=== PATIENT | female | born 1955 | race Caucasian/White ===

== ENCOUNTER 2016-10-05 12:18 | Inpatient (IN) | payer MEDICARE, MEDICAID ==
[~2016-10-05] VITALS: Ht 162.6 cm; Wt 95.0 kg
[~2016-10-05 12:18] MED LIST: ALAVERT10 MG OR; ALBUTEROL0.5 % IN; AMLODIPINE BESYL5 MG PO; ASPIRIN LOW DOS81 M2 PO; ASPIRIN325 MG OR; ATENOLOL50 MG PO; ATORVASTATIN CA40 MG PO; BACTRIM DS1 TAB PO; BENAZEPRIL10 M1 PO; BENAZEPRIL10 MG PO; BIAXIN500 MG OR; BUMEX OR; BUPROPION150 MG PO; CHANTIX1 MG PO; CILOSTAZOL100 MG PO; CIPRO500 MG OR; COMBIVENT IN; COUMADIN2.5 MG PO; CYANOCOBALAM1000 MCG IJ; CYCLOBENZAPR10 MG PO; DEXILANT60 MG PO; FLEXERIL PO; FOLIC ACID1 MG PO; FUROSEMIDE40 MG PO; GABAPENTIN300 MG OR; GABAPENTIN300 MG PO; GEMFIBROZIL600 MG OR; GLIPIZIDE ER5 MG OR; GLUCOVANCE5 MG/500 M OR; HUMULI1; HUMULI1 SC; HUMULIN 70/30 SC; HYDROXYCHLOROQ200 MG PO; IMDUR30 MG OR; IMURAN50 MG PO; IPRATROPIUM0.03 %; ISOSORB MONO30 MG OR; KEFLEX500 M1 PO; LANOXIN0.25 MG PO; LASIX20 MG PO; LEVEMIR SC; LOPID600 MG OR; LOPID600 MG PO; LORTAB 1010 MG PO; LORTAB 5; LORTAB 5 OR; LOTENSIN5 MG OR; LOVENOX 6060 MG/0.6 SC; MAG-OXIDE400 MG PO; METFORMIN1000 MG OR; MULTIVITAMIN OR; NEURONTIN600 MG PO; NITROGLYCER0.4 MG SL; NITROSTAT0.4 MG SL; NOVOLOG100 IU/1 M SC; PLAVIX75 MG PO; PRADAXA150 MG PO; SERTRALINE25 MG OR; SERTRALINE50 MG OR; SERTRALINE50 MG PO; SIMVASTATIN40 MG PO; SORINE80 MG PO; TENORMIN100 MG PO; ZANTAC 150 PO; ZANTAC150 M1 OR; [UNRECOGNIZED DRUG - MIXTURE] OR
[2016-10-05] MEDS ORDERED: HYDROXYCHLOR200 MG PO (13:03)
[2016-10-05] MEDS ORDERED: LORTAB 10-325 M1 TAB PO (13:04)
[2016-10-05] MEDS ORDERED: IMODIUM2 MG PO (13:06)
[2016-10-05] MEDS ORDERED: ARICEPT5 MG PO (13:07)
[2016-10-05] MEDS ORDERED: LEXAPRO10 MG PO (13:19)
[2016-10-05 13:27] LABS: HEMATOCRIT 28.2 % (37.0-47.0); HEMOGLOBIN 8.3 g/dl (12.0-16.0); IMMATURE GRANULOCYTES 0.4 % (0.0-1.0); MEAN CELL VOLUME 89.8 fL CALC (80.0-100.0); MEAN CORPUSCULAR HGB 26.4 pG CALC (26.0-32.0); MEAN CORPUSCULAR HGB CONC 29.4 g/L CALC (32.0-36.0); NEUT# 6.17 thou/uL (2.00-7.15); RED BLOOD COUNT 3.14 mill/uL (4.20-5.60); RED CELL DISTRI WIDTH 18.9 % (11.5-15.5)
[2016-10-05 13:42] LABS: ALBUMIN 3.4 g/dL (3.2-5.0); ALKALINE PHOSPHATASE 112 u/l (38-126); ANION GAP 13 (6-22 (CALC)); BILIRUBIN, TOTAL 0.8 mg/dL (0.0-1.4); BUN 24 mg/dL (8-23); BUN/CREATININE RATIO 25 (12-20 (CALC)); CALCIUM 8.6 mg/dL (8.4-10.2); CARBON DIOXIDE 29 mmol/l (22-30); CHLORIDE 104 mmol/l (95-108); GFR 56 ML/MIN (>=60 (CALC)); GFR FOR AFR.AMER. > 60 ML/MIN (>=60 (CALC)); GLUCOSE 134 mg/dL (82-115); SGOT/AST 15 u/l (9-36); SGPT/ALT 24 u/l (11-66); SODIUM 141 mmol/l (137-146)
[2016-10-05 13:47] LABS: INTERNATIONAL NORMALIZED RATIO 3.3 RATIO (0.7-1.3); PROTHROMBIN TIME 38.8 SECONDS (9.0-12.5)
[2016-10-05 13:49] LABS: POTASSIUM 5.2 mmol/l (3.5-5.1)
[2016-10-05 13:53] LABS: MYOGLOBIN 57 ng/mL (0 - 62)
[2016-10-05] MEDS ORDERED: HYDROXYCHLOR200 M1 PO (14:33)
[2016-10-05] MEDS ORDERED: HUMULIN 70/30 K1 INJ SC (14:34)
[2016-10-05] MEDS ORDERED: LEVEMIR100 UNIT/M SC (14:35)
[2016-10-05] MEDS ORDERED: DIGOXIN125 MCG PO (14:35)
[2016-10-05 16:58] VITALS: BP 155/66
== END 2016-10-05 16:37 | disposition left against medical advice (07) | DRG 293 ==
LOC: ED 12:18 → ED-I 15:30 → ED 15:47 → MS2 15:48
PROVIDERS: Emergency Medicine; ADMIT Internal Medicine; ATTEND Internal Medicine
DX: I11.0 Hypertensive heart disease with heart failure (principal); Z99.81 Dependence on supplemental oxygen; I50.9 Heart failure, unspecified; J44.9 Chronic obstructive pulmonary disease, unspecified; E11.9 Type 2 diabetes mellitus without complications; I48.91 Unspecified atrial fibrillation; M19.90 Unspecified osteoarthritis, unspecified site; F17.210 Nicotine dependence, cigarettes, uncomplicated; Z95.5 Presence of coronary angioplasty implant and graft; Z79.4 Long term (current) use of insulin

== ENCOUNTER 2016-10-06 20:08 | Inpatient (IN) | payer MEDICARE, MEDICAID ==
[~2016-10-06] VITALS: Ht 162.6 cm; Wt 94.0 kg
[~2016-10-06 20:08] MED LIST changes: +ARICEPT5 MG PO; +DIGOXIN125 MCG PO; +HUMULIN 70/30 K1 INJ SC; +HYDROXYCHLOR200 M1 PO; +HYDROXYCHLOR200 MG PO; +IMODIUM2 MG PO; +LEVEMIR100 UNIT/M SC; +LEXAPRO10 MG PO; +LORTAB 10-325 M1 TAB PO
[2016-10-06 20:46] LABS: HEMOGLOBIN 8.7 g/dl (12.0-16.0); IMMATURE GRANULOCYTES 0.3 % (0.0-1.0); MEAN CELL VOLUME 89.3 fL CALC (80.0-100.0); MEAN CORPUSCULAR HGB 25.9 pG CALC (26.0-32.0); NEUT# 6.4 thou/uL (2.00-7.15); RED BLOOD COUNT 3.36 mill/uL (4.20-5.60); RED CELL DISTRI WIDTH 18.7 % (11.5-15.5)
[2016-10-06 21:00] LABS: INTERNATIONAL NORMALIZED RATIO 2.3 RATIO (0.7-1.3); PROTHROMBIN TIME 26.8 SECONDS (9.0-12.5)
[2016-10-06 21:01] LABS: ALBUMIN 3.7 g/dL (3.2-5.0); ALKALINE PHOSPHATASE 111 u/l (38-126); ANION GAP 15 (6-22 (CALC)); BILIRUBIN, TOTAL 1.1 mg/dL (0.0-1.4); BUN 21 mg/dL (8-23); BUN/CREATININE RATIO 24 (12-20 (CALC)); CARBON DIOXIDE 30 mmol/l (22-30); CHLORIDE 101 mmol/l (95-108); CREATININE 0.9 mg/dL (0.5-1.0); GFR > 60 ML/MIN (>=60 (CALC)); GFR FOR AFR.AMER. > 60 ML/MIN (>=60 (CALC)); GLUCOSE 137 mg/dL (82-115); POTASSIUM 4.6 mmol/l (3.5-5.1); SGOT/AST 17 u/l (9-36); SGPT/ALT 21 u/l (11-66); SODIUM 141 mmol/l (137-146); TOTAL PROTEIN 7.4 g/dL (6.3-8.2)
[2016-10-06 21:09] LABS: MYOGLOBIN 57 ng/mL (0 - 62)
[2016-10-06 22:20] VITALS: BP 137/70
[2016-10-06 22:46] LABS: URINE BILIRUBIN - DIPSTICK NEGATIVE (NEGATIVE); URINE BLOOD DIPSTICK NEGATIVE (NEGATIVE); URINE CLARITY CLEAR; URINE COLOR YELLOW; URINE GLUCOSE - DIPSTICK NEGATIVE (NEGATIVE); URINE KETONE NEGATIVE (NEGATIVE); URINE LEUK ESTERASE NEGATIVE (NEGATIVE); URINE NITRITE - DIPSTICK NEGATIVE (Negative); URINE PH 5.5 (4.5-8.0); URINE PROTEIN - DIPSTICK NEGATIVE (NEG-TRACE); URINE UROBILINOGEN - DIPSTICK 0.2 E.U./dL (0.2)
[2016-10-07 04:40] VITALS: BP 125/62
[2016-10-07 05:46] LABS: INTERNATIONAL NORMALIZED RATIO 2.3 RATIO (0.7-1.3); PROTHROMBIN TIME 26.1 SECONDS (9.0-12.5)
[2016-10-07 05:50] LABS: ANION GAP 12 (6-22 (CALC)); BUN 19 mg/dL (8-23); BUN/CREATININE RATIO 23 (12-20 (CALC)); CALCIUM 8.8 mg/dL (8.4-10.2); CARBON DIOXIDE 33 mmol/l (22-30); CHLORIDE 99 mmol/l (95-108); CREATININE 0.8 mg/dL (0.5-1.0); GFR > 60 ML/MIN (>=60 (CALC)); GFR FOR AFR.AMER. > 60 ML/MIN (>=60 (CALC)); GLUCOSE 89 mg/dL (82-115); MAGNESIUM 1.5 mg/dL (1.6-2.3); POTASSIUM 3.9 mmol/l (3.5-5.1); SODIUM 141 mmol/l (137-146)
[2016-10-07 08:27] VITALS: BP 128/70
[2016-10-07 11:18] VITALS: BP 114/69
[2016-10-07 15:55] VITALS: BP 122/57
[2016-10-07 19:11] VITALS: BP 123/62
[2016-10-07 23:52] VITALS: BP 157/64
[2016-10-08 04:40] VITALS: BP 153/53
[2016-10-08 05:29] LABS: INTERNATIONAL NORMALIZED RATIO 1.7 RATIO (0.7-1.3); PROTHROMBIN TIME 19.4 SECONDS (9.0-12.5)
[2016-10-08 05:33] LABS: ANION GAP 14 (6-22 (CALC)); BUN 19 mg/dL (8-23); BUN/CREATININE RATIO 26 (12-20 (CALC)); CALCIUM 8.7 mg/dL (8.4-10.2); CARBON DIOXIDE 30 mmol/l (22-30); CHLORIDE 100 mmol/l (95-108); CREATININE 0.7 mg/dL (0.5-1.0); GFR > 60 ML/MIN (>=60 (CALC)); GFR FOR AFR.AMER. > 60 ML/MIN (>=60 (CALC)); GLUCOSE 139 mg/dL (82-115); POTASSIUM 4.7 mmol/l (3.5-5.1); SODIUM 139 mmol/l (137-146)
[2016-10-08 07:40] VITALS: BP 164/84
[2016-10-08] MEDS ORDERED: LISINOPRIL2.5 MG PO (10:47)
[2016-10-08] MEDS ORDERED: PREDNISONE10 MG PO (10:47)
[2016-10-08] MEDS ORDERED: DOXYCYCL HYC100 MG PO (10:47)
[2016-10-08] MEDS ORDERED: PEPCID20 MG PO (10:47)
[2016-10-08] MEDS ORDERED: LASIX 20 MG TAB20 MG PO (10:52)
[2016-10-08] MEDS ORDERED: NEBULIZER COMPRESSOR NEB (11:09)
[2016-10-08] MEDS ORDERED: IPRATROPIU0.5 MG/3 M IN (11:09)
== END 2016-10-08 11:25 | DRG 291 ==
LOC: ENPENDDIS → ED 20:08 → ED-I 21:23 → ED 21:23 → ED-I 21:26 → ED 21:47 → MS2 21:48
PROVIDERS: Emergency Medicine; ADMIT Internal Medicine; ATTEND Internal Medicine
DX: I11.0 Hypertensive heart disease with heart failure (principal); J18.9 Pneumonia, unspecified organism; J96.21 Acute and chronic respiratory failure with hypoxia; E11.40 Type 2 diabetes mellitus with diabetic neuropathy, unspecified; Z99.81 Dependence on supplemental oxygen; I48.0 Paroxysmal atrial fibrillation; J44.1 Chronic obstructive pulmonary disease with (acute) exacerbation; J44.0 Chronic obstructive pulmonary disease with (acute) lower respiratory infection; I50.31 Acute diastolic (congestive) heart failure; I25.10 Atherosclerotic heart disease of native coronary artery without angina pectoris; E11.9 Type 2 diabetes mellitus without complications; E78.5 Hyperlipidemia, unspecified; K21.9 Gastro-esophageal reflux disease without esophagitis; M15.9 Polyosteoarthritis, unspecified; F32.9 Major depressive disorder, single episode, unspecified; G47.33 Obstructive sleep apnea (adult) (pediatric); F17.210 Nicotine dependence, cigarettes, uncomplicated; Z79.4 Long term (current) use of insulin; Z95.5 Presence of coronary angioplasty implant and graft; Z79.01 Long term (current) use of anticoagulants

== ENCOUNTER 2017-01-28 10:27 | Emergency (ER) | payer MEDICARE, MEDICAID ==
[~2017-01-28] VITALS: Ht 162.6 cm; Wt 89.0 kg
[~2017-01-28 10:27] MED LIST changes: +DOXYCYCL HYC100 MG PO; +IPRATROPIU0.5 MG/3 M IN; +LANTUS SOL100 UNIT/M SC; +LASIX 20 MG TAB20 MG PO; -LEVEMIR100 UNIT/M SC; +LISINOPRIL2.5 MG PO; +NEBULIZER COMPRESSOR NEB; +PEPCID20 MG PO; +PREDNISONE10 MG PO
[2017-01-28] MEDS ORDERED: GABAPENTIN100 MG PO (10:56)
[2017-01-28] MEDS ORDERED: ZOFRAN ODT4 MG PO (10:58)
[2017-01-28] MEDS ORDERED: ATORVASTATIN CA40 MG PO (11:01)
[2017-01-28] MEDS ORDERED: CHANTIX1 MG PO (11:02)
[2017-01-28] MEDS ORDERED: ACCOLATE10 MG PO (11:03)
[2017-01-28] MEDS ORDERED: HYDROXYCHLOR200 M1 PO (11:03)
[2017-01-28] MEDS ORDERED: AMLODIPINE5 MG PO (11:12)
[2017-01-28 11:13] LABS: HEMATOCRIT 34.6 % (37.0-47.0); HEMOGLOBIN 10.8 g/dl (12.0-16.0); IMMATURE GRANULOCYTES 0.4 % (0.0-1.0); MEAN CELL VOLUME 86.9 fL CALC (80.0-100.0); MEAN CORPUSCULAR HGB 27.1 pG CALC (26.0-32.0); MEAN CORPUSCULAR HGB CONC 31.2 g/L CALC (32.0-36.0); NEUT# 5.96 thou/uL (2.00-7.15); RED BLOOD COUNT 3.98 mill/uL (4.20-5.60); RED CELL DISTRI WIDTH 16.2 % (11.5-15.5)
[2017-01-28 11:15] LABS: ALKALINE PHOSPHATASE 110 u/l (38-126); ANION GAP 17 (6-22 (CALC)); BILIRUBIN, TOTAL 1.2 mg/dL (0.0-1.4); BUN 12 mg/dL (8-23); BUN/CREATININE RATIO 16 (12-20 (CALC)); CARBON DIOXIDE 29 mmol/l (22-30); CHLORIDE 102 mmol/l (95-108); CREATININE 0.8 mg/dL (0.5-1.0); GFR > 60 ML/MIN (>=60 (CALC)); GFR FOR AFR.AMER. > 60 ML/MIN (>=60 (CALC)); GLUCOSE 114 mg/dL (82-115); SGOT/AST 21 u/l (9-36); SGPT/ALT 22 u/l (11-66); SODIUM 143 mmol/l (137-146); TOTAL PROTEIN 7.5 g/dL (6.3-8.2)
[2017-01-28 11:27] LABS: MYOGLOBIN 56 ng/mL (0 - 62)
[2017-01-28] MEDS ORDERED: PHENERGAN25 MG/TAB PO (15:22)
[2017-01-28 15:37] VITALS: BP 117/85
[2017-01-29] MEDS ORDERED: BACTRIM DS1 TAB PO (18:13)
== END 2017-01-28 15:47 | disposition home or self-care (01) ==
LOC: ED 10:27
PROVIDERS: Emergency Medicine
DX: R11.0 Nausea (principal); R53.1 Weakness; R19.7 Diarrhea, unspecified; I10 Essential (primary) hypertension; E11.9 Type 2 diabetes mellitus without complications; Z79.4 Long term (current) use of insulin; I48.91 Unspecified atrial fibrillation; Z79.01 Long term (current) use of anticoagulants; J90 Pleural effusion, not elsewhere classified

== ENCOUNTER 2017-01-29 15:14 | Emergency (ER) | payer MEDICARE, MEDICAID ==
[~2017-01-29] VITALS: Ht 162.6 cm; Wt 86.0 kg
[~2017-01-29 15:14] MED LIST changes: +ACCOLATE10 MG PO; +AMLODIPINE5 MG PO; +GABAPENTIN100 MG PO; +PHENERGAN25 MG/TAB PO; +ZOFRAN ODT4 MG PO
[2017-01-29 16:09] LABS: HEMATOCRIT 31.5 % (37.0-47.0); HEMOGLOBIN 9.6 g/dl (12.0-16.0); IMMATURE GRANULOCYTES 0.5 % (0.0-1.0); MEAN CELL VOLUME 88.5 fL CALC (80.0-100.0); MEAN CORPUSCULAR HGB CONC 30.5 g/L CALC (32.0-36.0); NEUT# 4.67 thou/uL (2.00-7.15); RED BLOOD COUNT 3.56 mill/uL (4.20-5.60); RED CELL DISTRI WIDTH 16.4 % (11.5-15.5)
[2017-01-29 16:44] LABS: ALBUMIN 3.5 g/dL (3.2-5.0); ALKALINE PHOSPHATASE 97 u/l (38-126); ANION GAP 14 (6-22 (CALC)); BUN 14 mg/dL (8-23); BUN/CREATININE RATIO 17 (12-20 (CALC)); CALCIUM 8.8 mg/dL (8.4-10.2); CARBON DIOXIDE 30 mmol/l (22-30); CHLORIDE 103 mmol/l (95-108); CREATININE 0.8 mg/dL (0.5-1.0); GFR > 60 ML/MIN (>=60 (CALC)); GFR FOR AFR.AMER. > 60 ML/MIN (>=60 (CALC)); GLUCOSE 179 mg/dL (82-115); MAGNESIUM 1.3 mg/dL (1.6-2.3); POTASSIUM 3.8 mmol/l (3.5-5.1); SGOT/AST 17 u/l (9-36); SGPT/ALT 25 u/l (11-66); SODIUM 143 mmol/l (137-146); TOTAL PROTEIN 6.7 g/dL (6.3-8.2)
[2017-01-29 16:56] LABS: MYOGLOBIN 52 ng/mL (0 - 62)
[2017-01-29 18:03] LABS: URINE BILIRUBIN - DIPSTICK NEGATIVE (NEGATIVE); URINE BLOOD DIPSTICK SMALL (NEGATIVE); URINE CLARITY SLIGHT CLOUDY; URINE COLOR YELLOW; URINE GLUCOSE - DIPSTICK NEGATIVE (NEGATIVE); URINE KETONE NEGATIVE (NEGATIVE); URINE LEUK ESTERASE TRACE (NEGATIVE); URINE NITRITE - DIPSTICK NEGATIVE (Negative); URINE PH 5.5 (4.5-8.0); URINE PROTEIN - DIPSTICK NEGATIVE (NEG-TRACE); URINE SPECIFIC GRAVITY >=1.030; URINE UROBILINOGEN - DIPSTICK 0.2 E.U./dL (0.2)
[2017-01-29 18:09] LABS: URINE BACTERIA MANY hpf; URINE SQUAMOUS EPITHELIAL CELL FEW EPI/hpf (0-FEW)
[2017-01-29] MEDS ORDERED: BACTRIM DS1 TAB PO (18:13)
[2017-01-29 21:28] VITALS: BP 112/54
== END 2017-01-29 21:29 | disposition home or self-care (01) ==
LOC: ED 15:14
PROVIDERS: Emergency Medicine
DX: N39.0 Urinary tract infection, site not specified (principal); E83.42 Hypomagnesemia; B96.89 Other specified bacterial agents as the cause of diseases classified elsewhere; R53.1 Weakness; R11.0 Nausea; I10 Essential (primary) hypertension; I48.91 Unspecified atrial fibrillation; E11.9 Type 2 diabetes mellitus without complications; Z79.4 Long term (current) use of insulin
CPT/HCPCS: J3475

== ENCOUNTER 2017-02-01 07:47 | Inpatient (IN) | payer MEDICARE, MEDICAID ==
[~2017-02-01] VITALS: Ht 162.6 cm; Wt 90.0 kg
[2017-02-01 08:26] LABS: HEMATOCRIT 30.6 % (37.0-47.0); HEMOGLOBIN 9.7 g/dl (12.0-16.0); IMMATURE GRANULOCYTES 0.4 % (0.0-1.0); MEAN CELL VOLUME 86.7 fL CALC (80.0-100.0); MEAN CORPUSCULAR HGB 27.5 pG CALC (26.0-32.0); MEAN CORPUSCULAR HGB CONC 31.7 g/L CALC (32.0-36.0); NEUT# 4.19 thou/uL (2.00-7.15); RED BLOOD COUNT 3.53 mill/uL (4.20-5.60); RED CELL DISTRI WIDTH 17.3 % (11.5-15.5)
[2017-02-01 08:36] LABS: ALBUMIN 3.6 g/dL (3.2-5.0); ALKALINE PHOSPHATASE 106 u/l (38-126); ANION GAP 16 (6-22 (CALC)); BILIRUBIN, TOTAL 1.1 mg/dL (0.0-1.4); BUN 12 mg/dL (8-23); BUN/CREATININE RATIO 16 (12-20 (CALC)); CARBON DIOXIDE 28 mmol/l (22-30); CHLORIDE 100 mmol/l (95-108); CREATININE 0.8 mg/dL (0.5-1.0); GFR > 60 ML/MIN (>=60 (CALC)); GFR FOR AFR.AMER. > 60 ML/MIN (>=60 (CALC)); GLUCOSE 131 mg/dL (82-115); MAGNESIUM 1.3 mg/dL (1.6-2.3); POTASSIUM 3.7 mmol/l (3.5-5.1); SGOT/AST 15 u/l (9-36); SGPT/ALT 24 u/l (11-66); SODIUM 141 mmol/l (137-146)
[2017-02-01 08:47] LABS: MYOGLOBIN 42 ng/mL (0 - 62)
[2017-02-01 08:51] LABS: INTERNATIONAL NORMALIZED RATIO 7.6 RATIO (0.7-1.3); PROTHROMBIN TIME 96.3 SECONDS (9.0-12.5)
[2017-02-01 08:55] LABS: URINE BILIRUBIN - DIPSTICK NEGATIVE (NEGATIVE); URINE BLOOD DIPSTICK TRACE-INTACT (NEGATIVE); URINE CLARITY CLEAR; URINE COLOR YELLOW; URINE GLUCOSE - DIPSTICK NEGATIVE (NEGATIVE); URINE KETONE NEGATIVE (NEGATIVE); URINE LEUK ESTERASE NEGATIVE (NEGATIVE); URINE NITRITE - DIPSTICK NEGATIVE (Negative); URINE PROTEIN - DIPSTICK NEGATIVE (NEG-TRACE); URINE UROBILINOGEN - DIPSTICK 0.2 E.U./dL (0.2)
[2017-02-01 12:00] VITALS: BP 117/66
[2017-02-01 15:19] VITALS: BP 122/59
[2017-02-01 19:15] VITALS: BP 105/56
[2017-02-02 00:45] VITALS: BP 145/76
[2017-02-02 05:00] VITALS: BP 167/79
[2017-02-02 06:10] LABS: HEMATOCRIT 32.3 % (37.0-47.0); HEMOGLOBIN 10.2 g/dl (12.0-16.0); MEAN CELL VOLUME 87.3 fL CALC (80.0-100.0); MEAN CORPUSCULAR HGB 27.6 pG CALC (26.0-32.0); MEAN CORPUSCULAR HGB CONC 31.6 g/L CALC (32.0-36.0); RED BLOOD COUNT 3.7 mill/uL (4.20-5.60); RED CELL DISTRI WIDTH 17.4 % (11.5-15.5)
[2017-02-02 06:21] LABS: INTERNATIONAL NORMALIZED RATIO 3.5 RATIO (0.7-1.3); PROTHROMBIN TIME 41.5 SECONDS (9.0-12.5)
[2017-02-02 06:25] LABS: ANION GAP 17 (6-22 (CALC)); BUN 14 mg/dL (8-23); BUN/CREATININE RATIO 19 (12-20 (CALC)); CALCIUM 9.2 mg/dL (8.4-10.2); CARBON DIOXIDE 31 mmol/l (22-30); CHLORIDE 98 mmol/l (95-108); CREATININE 0.8 mg/dL (0.5-1.0); GFR > 60 ML/MIN (>=60 (CALC)); GFR FOR AFR.AMER. > 60 ML/MIN (>=60 (CALC)); GLUCOSE 208 mg/dL (82-115); MAGNESIUM 1.7 mg/dL (1.6-2.3); POTASSIUM 5.1 mmol/l (3.5-5.1); SODIUM 141 mmol/l (137-146)
[2017-02-02 07:21] VITALS: BP 172/75
[2017-02-02 12:00] VITALS: BP 148/76
[2017-02-02] MEDS ORDERED: PREDNISONE10 MG PO (14:30)
== END 2017-02-02 15:06 | disposition home or self-care (01) | DRG 309 ==
LOC: ED 07:47 → ED-I 10:12 → ED 11:09 → MS2 11:10
PROVIDERS: Emergency Medicine; ADMIT Internal Medicine; ATTEND Internal Medicine
DX: I48.0 Paroxysmal atrial fibrillation (principal); J96.10 Chronic respiratory failure, unspecified whether with hypoxia or hypercapnia; E11.40 Type 2 diabetes mellitus with diabetic neuropathy, unspecified; Z99.81 Dependence on supplemental oxygen; N39.0 Urinary tract infection, site not specified; I10 Essential (primary) hypertension; J44.9 Chronic obstructive pulmonary disease, unspecified; I25.10 Atherosclerotic heart disease of native coronary artery without angina pectoris; K21.9 Gastro-esophageal reflux disease without esophagitis; M15.9 Polyosteoarthritis, unspecified; F32.9 Major depressive disorder, single episode, unspecified; G47.33 Obstructive sleep apnea (adult) (pediatric); F17.210 Nicotine dependence, cigarettes, uncomplicated; E83.42 Hypomagnesemia; B96.89 Other specified bacterial agents as the cause of diseases classified elsewhere; R79.1 Abnormal coagulation profile; T45.515A Adverse effect of anticoagulants, initial encounter; D64.9 Anemia, unspecified; Z95.5 Presence of coronary angioplasty implant and graft
CPT/HCPCS: J3475

== ENCOUNTER 2017-03-13 15:16 | Inpatient (IN) | payer MEDICARE, MEDICAID ==
[~2017-03-13] VITALS: Ht 162.6 cm; Wt 89.4 kg
[2017-03-13 15:56] LABS: HEMATOCRIT 31.3 % (37.0-47.0); HEMOGLOBIN 9.6 g/dl (12.0-16.0); IMMATURE GRANULOCYTES 0.6 % (0.0-1.0); MEAN CELL VOLUME 91.3 fL CALC (80.0-100.0); MEAN CORPUSCULAR HGB CONC 30.7 g/L CALC (32.0-36.0); NEUT# 4.02 thou/uL (2.00-7.15); RED BLOOD COUNT 3.43 mill/uL (4.20-5.60); RED CELL DISTRI WIDTH 17.4 % (11.5-15.5)
[2017-03-13 16:05] LABS: INTERNATIONAL NORMALIZED RATIO 2.3 RATIO (0.7-1.3)
[2017-03-13 16:07] LABS: ALBUMIN 3.5 g/dL (3.2-5.0); ALKALINE PHOSPHATASE 102 u/l (38-126); ANION GAP 15 (6-22 (CALC)); BILIRUBIN, TOTAL 1.1 mg/dL (0.0-1.4); BUN 22 mg/dL (8-23); BUN/CREATININE RATIO 22 (12-20 (CALC)); CALCIUM 8.6 mg/dL (8.4-10.2); CARBON DIOXIDE 29 mmol/l (22-30); CHLORIDE 103 mmol/l (95-108); GFR 56 ML/MIN (>=60 (CALC)); GFR FOR AFR.AMER. > 60 ML/MIN (>=60 (CALC)); GLUCOSE 132 mg/dL (82-115); POTASSIUM 3.7 mmol/l (3.5-5.1); SGOT/AST 11 u/l (9-36); SGPT/ALT 24 u/l (11-66); SODIUM 142 mmol/l (137-146); TOTAL PROTEIN 6.4 g/dL (6.3-8.2)
[2017-03-13 16:19] LABS: MYOGLOBIN 74 ng/mL (0 - 62)
[2017-03-13] MEDS ORDERED: MAGNESIUM250 M1 PO (16:20)
[2017-03-13] MEDS ORDERED: ZOFRAN4 MG/TAB PO (16:23)
[2017-03-13] MEDS ORDERED: CHANTIX1 MG PO (16:27)
[2017-03-13] MEDS ORDERED: AMIODARONE200 MG PO (16:31)
[2017-03-13] MEDS ORDERED: COUMADIN5 MG PO (16:32)
[2017-03-13 18:05] VITALS: BP 139/49
[2017-03-13 23:53] VITALS: BP 122/68
[2017-03-14 05:26] VITALS: BP 103/56
[2017-03-14 08:00] VITALS: BP 143/74
[2017-03-14 08:02] LABS: ANION GAP 16 (6-22 (CALC)); BUN 28 mg/dL (8-23); BUN/CREATININE RATIO 27 (12-20 (CALC)); CALCIUM 8.8 mg/dL (8.4-10.2); CARBON DIOXIDE 27 mmol/l (22-30); CHLORIDE 102 mmol/l (95-108); GFR 56 ML/MIN (>=60 (CALC)); GFR FOR AFR.AMER. > 60 ML/MIN (>=60 (CALC)); GLUCOSE 229 mg/dL (82-115); POTASSIUM 4.3 mmol/l (3.5-5.1); SODIUM 141 mmol/l (137-146)
[2017-03-14 08:04] LABS: INTERNATIONAL NORMALIZED RATIO 2.4 RATIO (0.7-1.3); PROTHROMBIN TIME 28.3 SECONDS (9.0-12.5)
[2017-03-14 11:00] VITALS: BP 104/55
[2017-03-14 15:53] VITALS: BP 131/57
[2017-03-14 19:00] VITALS: BP 114/59
[2017-03-15 01:01] VITALS: BP 135/58
[2017-03-15 04:54] VITALS: BP 129/74
[2017-03-15 06:21] LABS: HEMATOCRIT 29.2 % (37.0-47.0); MEAN CELL VOLUME 91.3 fL CALC (80.0-100.0); MEAN CORPUSCULAR HGB 28.1 pG CALC (26.0-32.0); MEAN CORPUSCULAR HGB CONC 30.8 g/L CALC (32.0-36.0); RED BLOOD COUNT 3.2 mill/uL (4.20-5.60); RED CELL DISTRI WIDTH 17.1 % (11.5-15.5)
[2017-03-15 06:52] LABS: PROTHROMBIN TIME 35.6 SECONDS (9.0-12.5)
[2017-03-15 06:56] LABS: ANION GAP 14 (6-22 (CALC)); BUN 33 mg/dL (8-23); BUN/CREATININE RATIO 32 (12-20 (CALC)); CARBON DIOXIDE 32 mmol/l (22-30); CHLORIDE 104 mmol/l (95-108); GFR 56 ML/MIN (>=60 (CALC)); GFR FOR AFR.AMER. > 60 ML/MIN (>=60 (CALC)); GLUCOSE 137 mg/dL (82-115); MAGNESIUM 1.6 mg/dL (1.6-2.3); POTASSIUM 4.1 mmol/l (3.5-5.1); SODIUM 146 mmol/l (137-146)
[2017-03-15 08:10] VITALS: BP 109/74
[2017-03-15 11:00] VITALS: BP 156/59
[2017-03-15 15:30] VITALS: BP 117/52
[2017-03-15 19:15] VITALS: BP 140/70
[2017-03-16] VITALS (7 sets, daily range): BP systolic 93–168; BP diastolic 54–82
[2017-03-16 06:30] LABS: HEMATOCRIT 29.3 % (37.0-47.0); HEMOGLOBIN 8.9 g/dl (12.0-16.0); IMMATURE GRANULOCYTES 0.8 % (0.0-1.0); MEAN CELL VOLUME 91.3 fL CALC (80.0-100.0); MEAN CORPUSCULAR HGB 27.7 pG CALC (26.0-32.0); MEAN CORPUSCULAR HGB CONC 30.4 g/L CALC (32.0-36.0); NEUT# 3.48 thou/uL (2.00-7.15); RED BLOOD COUNT 3.21 mill/uL (4.20-5.60); RED CELL DISTRI WIDTH 17.5 % (11.5-15.5)
[2017-03-16 06:43] LABS: INTERNATIONAL NORMALIZED RATIO 2.3 RATIO (0.7-1.3); PROTHROMBIN TIME 26.1 SECONDS (9.0-12.5)
[2017-03-16 06:49] LABS: ANION GAP 13 (6-22 (CALC)); BUN 29 mg/dL (8-23); BUN/CREATININE RATIO 34 (12-20 (CALC)); CALCIUM 8.9 mg/dL (8.4-10.2); CARBON DIOXIDE 33 mmol/l (22-30); CHLORIDE 104 mmol/l (95-108); CREATININE 0.8 mg/dL (0.5-1.0); GFR > 60 ML/MIN (>=60 (CALC)); GFR FOR AFR.AMER. > 60 ML/MIN (>=60 (CALC)); GLUCOSE 97 mg/dL (82-115); MAGNESIUM 1.5 mg/dL (1.6-2.3); POTASSIUM 3.8 mmol/l (3.5-5.1); SODIUM 146 mmol/l (137-146)
[2017-03-17 04:25] VITALS: BP 140/62
[2017-03-17 07:02] LABS: ANION GAP 13 (6-22 (CALC)); BUN 31 mg/dL (8-23); BUN/CREATININE RATIO 31 (12-20 (CALC)); CALCIUM 9.2 mg/dL (8.4-10.2); CARBON DIOXIDE 37 mmol/l (22-30); CHLORIDE 101 mmol/l (95-108); GFR 56 ML/MIN (>=60 (CALC)); GFR FOR AFR.AMER. > 60 ML/MIN (>=60 (CALC)); GLUCOSE 76 mg/dL (82-115); POTASSIUM 4.3 mmol/l (3.5-5.1); SODIUM 145 mmol/l (137-146)
[2017-03-17 07:16] LABS: INTERNATIONAL NORMALIZED RATIO 1.5 RATIO (0.7-1.3)
[2017-03-17 07:56] VITALS: BP 129/59
[2017-03-17 08:44] VITALS: BP 129/59
[2017-03-17] MEDS ORDERED: AMIODARONE200 MG PO (12:04)
== END 2017-03-17 13:20 | disposition home or self-care (01) | DRG 291 ==
LOC: ED 15:16 → ED-I 16:19 → ED 16:36 → MS2 16:37
PROVIDERS: Emergency Medicine; Internal Medicine; Nurse Practitioner Family; ADMIT Internal Medicine; ATTEND Internal Medicine
PROC: 5A09357 Assistance with Respiratory Ventilation, Less than 24 Consecutive Hours, Continuous Positive Airway Pressure (ICD-10-PCS; principal; 2017-03-15)
DX: I11.0 Hypertensive heart disease with heart failure (principal); J96.21 Acute and chronic respiratory failure with hypoxia; E11.40 Type 2 diabetes mellitus with diabetic neuropathy, unspecified; J44.1 Chronic obstructive pulmonary disease with (acute) exacerbation; I48.2 Chronic atrial fibrillation; I65.21 Occlusion and stenosis of right carotid artery; E66.01 Morbid (severe) obesity due to excess calories; I50.33 Acute on chronic diastolic (congestive) heart failure; I25.10 Atherosclerotic heart disease of native coronary artery without angina pectoris; G47.33 Obstructive sleep apnea (adult) (pediatric); F17.210 Nicotine dependence, cigarettes, uncomplicated; E78.5 Hyperlipidemia, unspecified; M15.9 Polyosteoarthritis, unspecified; F32.9 Major depressive disorder, single episode, unspecified; Z79.899 Other long term (current) drug therapy; Z79.4 Long term (current) use of insulin; Z99.81 Dependence on supplemental oxygen; Z98.84 Bariatric surgery status; Z91.19 Patient's noncompliance with other medical treatment and regimen; Z79.01 Long term (current) use of anticoagulants; Z95.5 Presence of coronary angioplasty implant and graft; Z68.35 Body mass index [BMI] 35.0-35.9, adult

== ENCOUNTER 2017-04-17 09:26 | Emergency (ER) | payer MEDICARE, MEDICAID ==
[~2017-04-17 09:26] MED LIST changes: +AMIODARONE200 MG PO; +COUMADIN5 MG PO; +MAGNESIUM250 M1 PO; +ZOFRAN4 MG/TAB PO
[2017-04-17] MEDS ORDERED: ZITHROMAX250 MG PO ×2 (10:01→10:26)
[2017-04-17] MEDS ORDERED: PREDNISONE50 MG PO ×2 (10:01→10:26)
[2017-04-17 10:33] VITALS: BP 115/56
== END 2017-04-17 10:46 | disposition home or self-care (01) ==
LOC: ED 09:26
DX: J44.1 Chronic obstructive pulmonary disease with (acute) exacerbation (principal); J06.9 Acute upper respiratory infection, unspecified; I10 Essential (primary) hypertension; F17.210 Nicotine dependence, cigarettes, uncomplicated; Z99.81 Dependence on supplemental oxygen

== ENCOUNTER 2017-04-25 05:15 | Inpatient (IN) | payer MEDICARE, MEDICAID ==
[~2017-04-25] VITALS: Ht 162.6 cm; Wt 89.4 kg
[~2017-04-25 05:15] MED LIST changes: +PREDNISONE50 MG PO; +ZITHROMAX250 MG PO
[2017-04-25 06:12] LABS: URINE BILIRUBIN - DIPSTICK NEGATIVE (NEGATIVE); URINE BLOOD DIPSTICK TRACE-LYSED (NEGATIVE); URINE COLOR YELLOW; URINE GLUCOSE - DIPSTICK NEGATIVE (NEGATIVE); URINE KETONE NEGATIVE (NEGATIVE); URINE LEUK ESTERASE TRACE (NEGATIVE); URINE NITRITE - DIPSTICK NEGATIVE (Negative); URINE PH 6.5 (4.5-8.0); URINE PROTEIN - DIPSTICK 30 mg/dL (NEG-TRACE); URINE UROBILINOGEN - DIPSTICK 0.2 E.U./dL (0.2)
[2017-04-25 06:12] LABS: HEMATOCRIT 38.2 % (37.0-47.0); HEMOGLOBIN 11.6 g/dl (12.0-16.0); IMMATURE GRANULOCYTES 0.8 % (0.0-1.0); MEAN CELL VOLUME 89.9 fL CALC (80.0-100.0); MEAN CORPUSCULAR HGB 27.3 pG CALC (26.0-32.0); MEAN CORPUSCULAR HGB CONC 30.4 g/L CALC (32.0-36.0); NEUT# 8.76 thou/uL (2.00-7.15); RED BLOOD COUNT 4.25 mill/uL (4.20-5.60); RED CELL DISTRI WIDTH 16.1 % (11.5-15.5)
[2017-04-25 06:23] LABS: INFLUENZA A POSITIVE (NONE DETECT); INFLUENZA B NONE DETECTED (NONE DETECT)
[2017-04-25 06:25] LABS: URINE CLARITY CLEAR
[2017-04-25 06:26] LABS: ALBUMIN 4.2 g/dL (3.2-5.0); ALKALINE PHOSPHATASE 103 u/l (38-126); ANION GAP 17 (6-22 (CALC)); BUN 18 mg/dL (8-23); BUN/CREATININE RATIO 22 (12-20 (CALC)); CALCIUM 9.5 mg/dL (8.4-10.2); CARBON DIOXIDE 26 mmol/l (22-30); CHLORIDE 104 mmol/l (95-108); CREATININE 0.9 mg/dL (0.5-1.0); GFR > 60 ML/MIN (>=60 (CALC)); GFR FOR AFR.AMER. > 60 ML/MIN (>=60 (CALC)); GLUCOSE 172 mg/dL (82-115); POTASSIUM 3.7 mmol/l (3.5-5.1); SGOT/AST 16 u/l (9-36); SGPT/ALT 17 u/l (11-66); SODIUM 144 mmol/l (137-146); TOTAL PROTEIN 7.1 g/dL (6.3-8.2)
[2017-04-25 06:31] LABS: INTERNATIONAL NORMALIZED RATIO 1.5 RATIO (0.7-1.3); PROTHROMBIN TIME 17.3 SECONDS (9.0-12.5)
[2017-04-25 06:38] LABS: MYOGLOBIN 40 ng/mL (0 - 62)
[2017-04-25 06:50] LABS: URINE SQUAMOUS EPITHELIAL CELL RARE EPI/hpf (0-FEW)
[2017-04-25 08:00] VITALS: BP 124/58
[2017-04-25 10:07] LABS: CHOLESTEROL HDL RATIO 4.2 (<4.4 (CALC)); MAGNESIUM 1.4 mg/dL (1.6-2.3)
[2017-04-25] MEDS ORDERED: AMIODARONE200 MG PO (13:26)
[2017-04-25] MEDS ORDERED: LASIX 40 MG TAB40 MG PO (13:28)
[2017-04-25] MEDS ORDERED: NEURONTIN600 MG PO (13:29)
[2017-04-25] MEDS ORDERED: MUPIROCIN2 % EX (13:30)
[2017-04-25 15:51] VITALS: BP 107/59
[2017-04-25 19:05] VITALS: BP 96/46
[2017-04-26 04:12] VITALS: BP 99/59
[2017-04-26 06:55] LABS: HEMATOCRIT 32.4 % (37.0-47.0); HEMOGLOBIN 9.7 g/dl (12.0-16.0); IMMATURE GRANULOCYTES 0.6 % (0.0-1.0); MEAN CELL VOLUME 91.5 fL CALC (80.0-100.0); MEAN CORPUSCULAR HGB 27.4 pG CALC (26.0-32.0); MEAN CORPUSCULAR HGB CONC 29.9 g/L CALC (32.0-36.0); NEUT# 7.23 thou/uL (2.00-7.15); RED BLOOD COUNT 3.54 mill/uL (4.20-5.60); RED CELL DISTRI WIDTH 16.1 % (11.5-15.5)
[2017-04-26 07:12] LABS: ANION GAP 15 (6-22 (CALC)); BUN 25 mg/dL (8-23); BUN/CREATININE RATIO 24 (12-20 (CALC)); CALCIUM 9.1 mg/dL (8.4-10.2); CARBON DIOXIDE 27 mmol/l (22-30); CHLORIDE 104 mmol/l (95-108); GFR 56 ML/MIN (>=60 (CALC)); GFR FOR AFR.AMER. > 60 ML/MIN (>=60 (CALC)); GLUCOSE 143 mg/dL (82-115); MAGNESIUM 2.5 mg/dL (1.6-2.3); POTASSIUM 4.7 mmol/l (3.5-5.1); SODIUM 141 mmol/l (137-146)
[2017-04-26 09:00] VITALS: BP 117/56
[2017-04-26 10:20] LABS: INTERNATIONAL NORMALIZED RATIO 1.4 RATIO (0.7-1.3); PROTHROMBIN TIME 15.6 SECONDS (9.0-12.5)
[2017-04-26 16:45] VITALS: BP 122/67
[2017-04-26 19:50] VITALS: BP 115/62
[2017-04-27 04:31] VITALS: BP 90/42
[2017-04-27 06:02] LABS: HEMATOCRIT 28.2 % (37.0-47.0); HEMOGLOBIN 8.4 g/dl (12.0-16.0); IMMATURE GRANULOCYTES 0.7 % (0.0-1.0); MEAN CORPUSCULAR HGB 27.1 pG CALC (26.0-32.0); MEAN CORPUSCULAR HGB CONC 29.8 g/L CALC (32.0-36.0); NEUT# 3.24 thou/uL (2.00-7.15); RED BLOOD COUNT 3.1 mill/uL (4.20-5.60); RED CELL DISTRI WIDTH 15.9 % (11.5-15.5)
[2017-04-27 06:25] LABS: INTERNATIONAL NORMALIZED RATIO 1.4 RATIO (0.7-1.3); PROTHROMBIN TIME 15.9 SECONDS (9.0-12.5)
[2017-04-27 06:26] LABS: ANION GAP 13 (6-22 (CALC)); BUN 25 mg/dL (8-23); BUN/CREATININE RATIO 24 (12-20 (CALC)); CALCIUM 8.8 mg/dL (8.4-10.2); CARBON DIOXIDE 25 mmol/l (22-30); CHLORIDE 105 mmol/l (95-108); GFR 56 ML/MIN (>=60 (CALC)); GFR FOR AFR.AMER. > 60 ML/MIN (>=60 (CALC)); GLUCOSE 151 mg/dL (82-115); MAGNESIUM 2.1 mg/dL (1.6-2.3); POTASSIUM 3.9 mmol/l (3.5-5.1); SODIUM 139 mmol/l (137-146)
[2017-04-27 08:01] VITALS: BP 131/71
[2017-04-27 11:00] VITALS: BP 93/61
[2017-04-27 17:02] VITALS: BP 166/70
[2017-04-27 19:10] VITALS: BP 153/77
[2017-04-28 05:00] VITALS: BP 116/66
[2017-04-28 05:25] LABS: HEMATOCRIT 29.1 % (37.0-47.0); HEMOGLOBIN 8.6 g/dl (12.0-16.0); IMMATURE GRANULOCYTES 0.5 % (0.0-1.0); MEAN CELL VOLUME 91.2 fL CALC (80.0-100.0); MEAN CORPUSCULAR HGB CONC 29.6 g/L CALC (32.0-36.0); NEUT# 4.21 thou/uL (2.00-7.15); RED BLOOD COUNT 3.19 mill/uL (4.20-5.60); RED CELL DISTRI WIDTH 15.8 % (11.5-15.5)
[2017-04-28 05:35] LABS: ANION GAP 16 (6-22 (CALC)); BUN 29 mg/dL (8-23); BUN/CREATININE RATIO 32 (12-20 (CALC)); CALCIUM 9.4 mg/dL (8.4-10.2); CARBON DIOXIDE 24 mmol/l (22-30); CHLORIDE 106 mmol/l (95-108); CREATININE 0.9 mg/dL (0.5-1.0); GFR > 60 ML/MIN (>=60 (CALC)); GFR FOR AFR.AMER. > 60 ML/MIN (>=60 (CALC)); GLUCOSE 197 mg/dL (82-115); POTASSIUM 4.8 mmol/l (3.5-5.1); SODIUM 141 mmol/l (137-146)
[2017-04-28 08:21] VITALS: BP 121/53
[2017-04-28] MEDS ORDERED: TAM75CAP PO (09:11)
[2017-04-28] MEDS ORDERED: TRAMADOL HCL50 MG PO (09:14)
[2017-04-28] MEDS ORDERED: KEFLEX500 MG PO (09:14)
[2017-04-28] MEDS ORDERED: MEDDOSEPAK PO (11:56)
== END 2017-04-28 14:09 | disposition home or self-care (01) | DRG 193 ==
LOC: ED 05:15 → ED-I 06:42 → ED 06:57 → MS2 06:58
PROVIDERS: Emergency Medicine; Internal Medicine; Nurse Practitioner Family; ADMIT Internal Medicine; ATTEND Internal Medicine
DX: J10.00 Influenza due to other identified influenza virus with unspecified type of pneumonia (principal); J96.21 Acute and chronic respiratory failure with hypoxia; N17.9 Acute kidney failure, unspecified; J44.1 Chronic obstructive pulmonary disease with (acute) exacerbation; J44.0 Chronic obstructive pulmonary disease with (acute) lower respiratory infection; I13.0 Hypertensive heart and chronic kidney disease with heart failure and stage 1 through stage 4 chronic kidney disease, or unspecified chronic kidney disease; E11.22 Type 2 diabetes mellitus with diabetic chronic kidney disease; E11.40 Type 2 diabetes mellitus with diabetic neuropathy, unspecified; J18.9 Pneumonia, unspecified organism; I48.0 Paroxysmal atrial fibrillation; J02.0 Streptococcal pharyngitis; I25.10 Atherosclerotic heart disease of native coronary artery without angina pectoris; E78.5 Hyperlipidemia, unspecified; F32.9 Major depressive disorder, single episode, unspecified; G47.33 Obstructive sleep apnea (adult) (pediatric); K21.9 Gastro-esophageal reflux disease without esophagitis; E83.42 Hypomagnesemia; M15.9 Polyosteoarthritis, unspecified; Z79.4 Long term (current) use of insulin; Z95.5 Presence of coronary angioplasty implant and graft; Z79.01 Long term (current) use of anticoagulants; N18.9 Chronic kidney disease, unspecified; I50.9 Heart failure, unspecified
CPT/HCPCS: J0692; J3370; J3475

== ENCOUNTER 2017-07-02 19:39 | Inpatient (IN) | payer MEDICARE, MEDICAID ==
[~2017-07-02] VITALS: Ht 162.6 cm; Wt 91.8 kg
[~2017-07-02 19:39] MED LIST changes: +KEFLEX500 MG PO; +LASIX 40 MG TAB40 MG PO; +MEDDOSEPAK PO; +MUPIROCIN2 % EX; +TAM75CAP PO; +TRAMADOL HCL50 MG PO
[2017-07-02 20:27] LABS: HEMATOCRIT 38.4 % (37.0-47.0); HEMOGLOBIN 12.3 g/dl (12.0-16.0); IMMATURE GRANULOCYTES 0.6 % (0.0-1.0); MEAN CORPUSCULAR HGB 29.1 pG CALC (26.0-32.0); NEUT# 6.39 thou/uL (2.00-7.15); RED BLOOD COUNT 4.22 mill/uL (4.20-5.60); RED CELL DISTRI WIDTH 16.4 % (11.5-15.5)
[2017-07-02 20:39] LABS: ALBUMIN 3.7 g/dL (3.2-5.0); ALKALINE PHOSPHATASE 83 u/l (38-126); ANION GAP 14 (6-22 (CALC)); BILIRUBIN, TOTAL 0.8 mg/dL (0.0-1.4); BUN 22 mg/dL (8-23); BUN/CREATININE RATIO 23 (12-20 (CALC)); CARBON DIOXIDE 31 mmol/l (22-30); CHLORIDE 102 mmol/l (95-108); GFR 56 ML/MIN (>=60 (CALC)); GFR FOR AFR.AMER. > 60 ML/MIN (>=60 (CALC)); POTASSIUM 3.9 mmol/l (3.5-5.1); SGOT/AST 25 u/l (9-36); SGPT/ALT 27 u/l (11-66); SODIUM 143 mmol/l (137-146); TOTAL PROTEIN 6.4 g/dL (6.3-8.2)
[2017-07-02 20:59] LABS: PROTHROMBIN TIME 33.1 SECONDS (9.0-12.5)
[2017-07-02 21:00] LABS: INTERNATIONAL NORMALIZED RATIO 2.9 RATIO (0.7-1.3)
[2017-07-02 23:24] LABS: URINE BILIRUBIN - DIPSTICK NEGATIVE (NEGATIVE); URINE BLOOD DIPSTICK TRACE-INTACT (NEGATIVE); URINE COLOR YELLOW; URINE GLUCOSE - DIPSTICK NEGATIVE (NEGATIVE); URINE KETONE NEGATIVE (NEGATIVE); URINE LEUK ESTERASE TRACE (NEGATIVE); URINE NITRITE - DIPSTICK NEGATIVE (Negative); URINE PH 5.5 (4.5-8.0); URINE PROTEIN - DIPSTICK NEGATIVE (NEG-TRACE); URINE UROBILINOGEN - DIPSTICK 0.2 E.U./dL (0.2)
[2017-07-02 23:28] LABS: URINE CLARITY CLEAR
[2017-07-03] VITALS (8 sets, daily range): BP systolic 100–153; BP diastolic 52–74
[2017-07-03 08:41] LABS: CHOLESTEROL HDL RATIO 5.5 (<4.4 (CALC))
[2017-07-03] MEDS ORDERED: GABAPENTIN600 MG PO (11:08)
[2017-07-03] MEDS ORDERED: AMIODARONE200 MG PO (11:11)
[2017-07-04] VITALS (7 sets, daily range): BP systolic 96–133; BP diastolic 48–77
[2017-07-04 05:22] LABS: HEMATOCRIT 39.4 % (37.0-47.0); HEMOGLOBIN 12.9 g/dl (12.0-16.0); MEAN CELL VOLUME 89.3 fL CALC (80.0-100.0); MEAN CORPUSCULAR HGB 29.3 pG CALC (26.0-32.0); MEAN CORPUSCULAR HGB CONC 32.7 g/L CALC (32.0-36.0); RED BLOOD COUNT 4.41 mill/uL (4.20-5.60); RED CELL DISTRI WIDTH 15.9 % (11.5-15.5)
[2017-07-04 05:54] LABS: ANION GAP 14 (6-22 (CALC)); BUN 28 mg/dL (8-23); BUN/CREATININE RATIO 29 (12-20 (CALC)); CARBON DIOXIDE 30 mmol/l (22-30); CHLORIDE 105 mmol/l (95-108); GFR 56 ML/MIN (>=60 (CALC)); GFR FOR AFR.AMER. > 60 ML/MIN (>=60 (CALC)); POTASSIUM 3.5 mmol/l (3.5-5.1); SODIUM 145 mmol/l (137-146)
[2017-07-04 05:56] LABS: MAGNESIUM 1.4 mg/dL (1.6-2.3)
[2017-07-04 06:15] LABS: PROTHROMBIN TIME 20.7 SECONDS (9.0-12.5)
[2017-07-04 06:16] LABS: INTERNATIONAL NORMALIZED RATIO 1.8 RATIO (0.7-1.3)
== END 2017-07-04 19:50 | disposition short-term general hospital (02) | DRG 308 ==
LOC: ED 19:39 → ED-I 23:00 → ED 23:28 → MS2 23:29
PROVIDERS: Emergency Medicine; Nurse Practitioner Family; ADMIT Internal Medicine; ATTEND Internal Medicine
DX: R00.1 Bradycardia, unspecified (principal); I50.33 Acute on chronic diastolic (congestive) heart failure; J96.10 Chronic respiratory failure, unspecified whether with hypoxia or hypercapnia; E11.42 Type 2 diabetes mellitus with diabetic polyneuropathy; I27.20 Pulmonary hypertension, unspecified; E66.01 Morbid (severe) obesity due to excess calories; Z99.81 Dependence on supplemental oxygen; T46.2X5A Adverse effect of other antidysrhythmic drugs, initial encounter; I11.0 Hypertensive heart disease with heart failure; I48.2 Chronic atrial fibrillation; E78.5 Hyperlipidemia, unspecified; J44.9 Chronic obstructive pulmonary disease, unspecified; I25.10 Atherosclerotic heart disease of native coronary artery without angina pectoris; K21.9 Gastro-esophageal reflux disease without esophagitis; G47.33 Obstructive sleep apnea (adult) (pediatric); M15.9 Polyosteoarthritis, unspecified; M06.9 Rheumatoid arthritis, unspecified; F32.9 Major depressive disorder, single episode, unspecified; I71.4 Abdominal aortic aneurysm, without rupture; Z91.19 Patient's noncompliance with other medical treatment and regimen; Z95.5 Presence of coronary angioplasty implant and graft; Z79.4 Long term (current) use of insulin; Z87.891 Personal history of nicotine dependence; Z79.01 Long term (current) use of anticoagulants; Z95.820 Peripheral vascular angioplasty status with implants and grafts; Z68.34 Body mass index [BMI] 34.0-34.9, adult; Z98.84 Bariatric surgery status
CPT/HCPCS: G0378; J3475

== ENCOUNTER 2017-12-03 21:10 | Inpatient (IN) | payer MEDICARE, MEDICAID ==
[~2017-12-03] VITALS: Ht 162.6 cm; Wt 87.4 kg
[~2017-12-03 21:10] MED LIST changes: +GABAPENTIN600 MG PO
[2017-12-03] MEDS ORDERED: ULTRAM50 M1 PO (21:51)
[2017-12-03] MEDS ORDERED: ZOFRAN ODT4 MG PO (21:51)
[2017-12-03] MEDS ORDERED: ZOVIRAX51 EX (21:51)
[2017-12-03 21:59] LABS: HEMATOCRIT 32.9 % (37.0-47.0); IMMATURE GRANULOCYTES 2.5 % (0.0-5.0); MEAN CORPUSCULAR HGB 29.1 pG CALC (26.0-32.0); MEAN CORPUSCULAR HGB CONC 33.4 g/L CALC (32.0-36.0); NEUT# 13.49 thou/uL (2.00-7.15); RED BLOOD COUNT 3.78 mill/uL (4.20-5.60); RED CELL DISTRI WIDTH 15.9 % (11.5-15.5)
[2017-12-03 22:10] LABS: ALBUMIN 3.7 g/dL (3.2-5.0); ALKALINE PHOSPHATASE 101 u/l (38-126); AMYLASE 47 u/l (30-110); ANION GAP 19 (6-22 (CALC)); BUN 24 mg/dL (8-23); BUN/CREATININE RATIO 27 (12-20 (CALC)); CARBON DIOXIDE 27 mmol/l (22-30); CHLORIDE 94 mmol/l (95-108); CREATININE 0.9 mg/dL (0.5-1.0); GFR > 60 ML/MIN (>=60 (CALC)); GFR FOR AFR.AMER. > 60 ML/MIN (>=60 (CALC)); LIPASE 91 u/l (23-300); POTASSIUM 3.8 mmol/l (3.5-5.1); SGOT/AST 16 u/l (9-36); SGPT/ALT 23 u/l (11-66); SODIUM 136 mmol/l (137-146); TOTAL PROTEIN 7.7 g/dL (6.3-8.2)
[2017-12-03 22:18] LABS: MYOGLOBIN 110 ng/mL (0 - 62)
[2017-12-03 23:03] LABS: URINE BLOOD DIPSTICK LARGE (NEGATIVE); URINE COLOR YELLOW; URINE GLUCOSE - DIPSTICK NEGATIVE (NEGATIVE); URINE KETONE TRACE mg/dL (NEGATIVE); URINE LEUK ESTERASE NEGATIVE (NEGATIVE); URINE NITRITE - DIPSTICK NEGATIVE (Negative); URINE PROTEIN - DIPSTICK 100 mg/dL (NEG-TRACE)
[2017-12-03 23:04] LABS: URINE BILIRUBIN - DIPSTICK MODERATE (NEGATIVE); URINE CLARITY TURBID
[2017-12-03 23:09] LABS: URINE BACTERIA FEW hpf; URINE MUCUS FEW hpf (NONE-FEW); URINE SQUAMOUS EPITHELIAL CELL MANY EPI/hpf (0-FEW)
[2017-12-03 23:19] LABS: INTERNATIONAL NORMALIZED RATIO 1.2 RATIO (0.7-1.3); PROTHROMBIN TIME 13.9 SECONDS (9.0-12.5)
[2017-12-04] VITALS (10 sets, daily range): BP systolic 111–182; BP diastolic 57–79
[2017-12-04 06:04] LABS: C. DIFFICILE TOXIN A&B NEGATIVE (NEGATIVE)
[2017-12-04 06:05] LABS: HEMATOCRIT 34.8 % (37.0-47.0); HEMOGLOBIN 11.3 g/dl (12.0-16.0); IMMATURE GRANULOCYTES 1.8 % (0.0-5.0); MEAN CELL VOLUME 88.1 fL CALC (80.0-100.0); MEAN CORPUSCULAR HGB 28.6 pG CALC (26.0-32.0); MEAN CORPUSCULAR HGB CONC 32.5 g/L CALC (32.0-36.0); NEUT# 15.48 thou/uL (2.00-7.15); RED BLOOD COUNT 3.95 mill/uL (4.20-5.60); RED CELL DISTRI WIDTH 15.9 % (11.5-15.5)
[2017-12-04 06:15] LABS: ALBUMIN 3.3 g/dL (3.2-5.0); ALKALINE PHOSPHATASE 95 u/l (38-126); ANION GAP 19 (6-22 (CALC)); BUN 27 mg/dL (8-23); BUN/CREATININE RATIO 28 (12-20 (CALC)); CARBON DIOXIDE 21 mmol/l (22-30); CHLORIDE 97 mmol/l (95-108); GFR 56 ML/MIN (>=60 (CALC)); GFR FOR AFR.AMER. > 60 ML/MIN (>=60 (CALC)); POTASSIUM 4.1 mmol/l (3.5-5.1); SGOT/AST 17 u/l (9-36); SGPT/ALT 17 u/l (11-66); SODIUM 133 mmol/l (137-146)
[2017-12-05 04:07] VITALS: BP 124/66
[2017-12-05 05:05] LABS: HEMATOCRIT 32.7 % (37.0-47.0); HEMOGLOBIN 10.6 g/dl (12.0-16.0); MEAN CELL VOLUME 87.4 fL CALC (80.0-100.0); MEAN CORPUSCULAR HGB 28.3 pG CALC (26.0-32.0); MEAN CORPUSCULAR HGB CONC 32.4 g/L CALC (32.0-36.0); NEUT# 14.56 thou/uL (2.00-7.15); RED BLOOD COUNT 3.74 mill/uL (4.20-5.60); RED CELL DISTRI WIDTH 15.9 % (11.5-15.5)
[2017-12-05 05:14] LABS: ANION GAP 18 (6-22 (CALC)); BUN 35 mg/dL (8-23); BUN/CREATININE RATIO 38 (12-20 (CALC)); CARBON DIOXIDE 21 mmol/l (22-30); CHLORIDE 98 mmol/l (95-108); CREATININE 0.9 mg/dL (0.5-1.0); GFR > 60 ML/MIN (>=60 (CALC)); GFR FOR AFR.AMER. > 60 ML/MIN (>=60 (CALC)); POTASSIUM 3.8 mmol/l (3.5-5.1); SODIUM 134 mmol/l (137-146)
[2017-12-05 05:25] LABS: INTERNATIONAL NORMALIZED RATIO 1.4 RATIO (0.7-1.3)
[2017-12-05 05:41] LABS: PROTHROMBIN TIME 16.3 SECONDS (9.0-12.5)
[2017-12-05 07:45] VITALS: BP 129/74
[2017-12-05 15:26] VITALS: BP 108/54
[2017-12-05 19:00] VITALS: BP 138/72
[2017-12-06 05:20] LABS: HEMATOCRIT 31.9 % (37.0-47.0); HEMOGLOBIN 10.1 g/dl (12.0-16.0); MEAN CELL VOLUME 88.6 fL CALC (80.0-100.0); MEAN CORPUSCULAR HGB 28.1 pG CALC (26.0-32.0); MEAN CORPUSCULAR HGB CONC 31.7 g/L CALC (32.0-36.0); RED BLOOD COUNT 3.6 mill/uL (4.20-5.60); RED CELL DISTRI WIDTH 15.9 % (11.5-15.5)
[2017-12-06 05:37] LABS: INTERNATIONAL NORMALIZED RATIO 1.5 RATIO (0.7-1.3); PROTHROMBIN TIME 16.7 SECONDS (9.0-12.5)
[2017-12-06 05:40] LABS: ANION GAP 16 (6-22 (CALC)); BUN 39 mg/dL (8-23); BUN/CREATININE RATIO 43 (12-20 (CALC)); CARBON DIOXIDE 24 mmol/l (22-30); CHLORIDE 103 mmol/l (95-108); CREATININE 0.9 mg/dL (0.5-1.0); GFR > 60 ML/MIN (>=60 (CALC)); GFR FOR AFR.AMER. > 60 ML/MIN (>=60 (CALC)); POTASSIUM 4.3 mmol/l (3.5-5.1); SODIUM 139 mmol/l (137-146)
[2017-12-06 07:58] VITALS: BP 104/60
[2017-12-06 16:43] VITALS: BP 126/75
[2017-12-06 19:39] VITALS: BP 143/89
[2017-12-07 04:30] VITALS: BP 138/75
[2017-12-07 05:59] LABS: INTERNATIONAL NORMALIZED RATIO 2.5 RATIO (0.7-1.3)
[2017-12-07 08:00] VITALS: BP 134/68
[2017-12-07 15:24] VITALS: BP 141/80
[2017-12-07 20:01] VITALS: BP 135/82
[2017-12-08 04:00] VITALS: BP 142/65
[2017-12-08 05:33] LABS: INTERNATIONAL NORMALIZED RATIO 3.8 RATIO (0.7-1.3); PROTHROMBIN TIME 43.2 SECONDS (9.0-12.5)
[2017-12-08 08:00] VITALS: BP 147/62
[2017-12-08 13:16] LABS: CREATININE 0.6 mg/dL (0.5-1.0)
[2017-12-08 16:00] VITALS: BP 134/73
== END 2017-12-08 19:15 | disposition short-term general hospital (02) | DRG 871 ==
LOC: ED 21:10 → ED-I 22:20 → ED 12-04 01:11 → ICU 12-04 01:12 → MS2 12-04 19:05
PROVIDERS: Emergency Medicine; Nurse Practitioner Family; ADMIT Internal Medicine; ATTEND Internal Medicine
DX: A41.9 Sepsis, unspecified organism (principal); J18.9 Pneumonia, unspecified organism; I50.22 Chronic systolic (congestive) heart failure; J44.0 Chronic obstructive pulmonary disease with (acute) lower respiratory infection; J96.12 Chronic respiratory failure with hypercapnia; J96.11 Chronic respiratory failure with hypoxia; I11.0 Hypertensive heart disease with heart failure; I48.0 Paroxysmal atrial fibrillation; E11.65 Type 2 diabetes mellitus with hyperglycemia; T38.0X5A Adverse effect of glucocorticoids and synthetic analogues, initial encounter; G47.33 Obstructive sleep apnea (adult) (pediatric); R19.7 Diarrhea, unspecified; E83.42 Hypomagnesemia; I25.10 Atherosclerotic heart disease of native coronary artery without angina pectoris; E78.5 Hyperlipidemia, unspecified; K21.9 Gastro-esophageal reflux disease without esophagitis; E11.40 Type 2 diabetes mellitus with diabetic neuropathy, unspecified; M15.9 Polyosteoarthritis, unspecified; F32.9 Major depressive disorder, single episode, unspecified; F17.210 Nicotine dependence, cigarettes, uncomplicated; Z99.81 Dependence on supplemental oxygen; Z98.84 Bariatric surgery status; Z79.4 Long term (current) use of insulin; Z95.0 Presence of cardiac pacemaker; Z95.5 Presence of coronary angioplasty implant and graft; Z79.01 Long term (current) use of anticoagulants; Z95.828 Presence of other vascular implants and grafts
CPT/HCPCS: J0692; J1650; J3370

== ENCOUNTER → 2018-01-22 | Outpatient (REF) | payer MEDICARE, MEDICAID ==
[~2018-01-22] MED LIST changes: +ULTRAM50 M1 PO; +ZOVIRAX51 EX
[2018-01-22 15:23] VITALS: BP 118/71
== END | disposition home or self-care (01) ==
LOC: INF 14:14
PROVIDERS: ATTEND Internal Medicine
DX: D50.9 Iron deficiency anemia, unspecified (principal); N18.2 Chronic kidney disease, stage 2 (mild)
CPT/HCPCS: Q0138

== ENCOUNTER → 2018-03-18 11:26 | Emergency (ER) | payer MEDICARE, MEDICAID | END | disposition left against medical advice (07) | LOC: ED 11:26 → LWOBS 11:26 | DX: Z91.19 Patient's noncompliance with other medical treatment and regimen (principal) ==

== ENCOUNTER 2018-06-02 17:48 | Emergency (ER) | payer MEDICARE, MEDICAID ==
[~2018-06-02] VITALS: Ht 162.6 cm; Wt 80.0 kg
[2018-06-02 19:45] LABS: HEMOGLOBIN 11.4 g/dl (12.0-16.0); IMMATURE GRANULOCYTES 0.4 % (0.0-5.0); MEAN CELL VOLUME 91.5 fL CALC (80.0-100.0); MEAN CORPUSCULAR HGB 31.3 pG CALC (26.0-32.0); MEAN CORPUSCULAR HGB CONC 34.2 g/L CALC (32.0-36.0); NEUT# 3.52 thou/uL (2.00-7.15); RED BLOOD COUNT 3.64 mill/uL (4.20-5.60); RED CELL DISTRI WIDTH 12.7 % (11.5-15.5)
[2018-06-02 19:47] LABS: HEMATOCRIT 33.3 % (37.0-47.0)
[2018-06-02 20:06] LABS: ALBUMIN 4.1 g/dL (3.2-5.0); ALKALINE PHOSPHATASE 91 u/l (38-126); BILIRUBIN, TOTAL 0.8 mg/dL (0.0-1.4); BUN 17 mg/dL (8-23); BUN/CREATININE RATIO 13 (12-20 (CALC)); CARBON DIOXIDE 31 mmol/l (22-30); CHLORIDE 97 mmol/l (95-108); CREATININE 1.3 mg/dL (0.5-1.0); GFR 41 ML/MIN (>=60 (CALC)); GFR FOR AFR.AMER. 50 ML/MIN (>=60 (CALC)); SGOT/AST 19 u/l (9-36); SODIUM 138 mmol/l (137-146); TOTAL PROTEIN 7.4 g/dL (6.3-8.2)
[2018-06-02 20:14] LABS: ANION GAP 13 (6-22 (CALC)); POTASSIUM 3.3 mmol/l (3.5-5.1)
[2018-06-02 20:17] LABS: MYOGLOBIN 41 ng/mL (0 - 62)
[2018-06-02 20:39] LABS: URINE BILIRUBIN - DIPSTICK NEGATIVE (NEGATIVE); URINE BLOOD DIPSTICK NEGATIVE (NEGATIVE); URINE COLOR YELLOW; URINE GLUCOSE - DIPSTICK NEGATIVE (NEGATIVE); URINE KETONE NEGATIVE (NEGATIVE); URINE LEUK ESTERASE NEGATIVE (NEGATIVE); URINE NITRITE - DIPSTICK NEGATIVE (Negative); URINE PH 5.5 (4.5-8.0); URINE PROTEIN - DIPSTICK NEGATIVE (NEG-TRACE); URINE UROBILINOGEN - DIPSTICK 0.2 E.U./dL (0.2)
[2018-06-02] MEDS ORDERED: ELIQUIS5 MG PO (21:22)
[2018-06-02] MEDS ORDERED: APAP/HYDRO325 MG/10 PO (21:22)
[2018-06-02] MEDS ORDERED: K-DUR/KLOR-CON20 MEQ PO (21:23)
[2018-06-02] MEDS ORDERED: CHANTIX CONTINUI1 MG PO (21:23)
[2018-06-02] MEDS ORDERED: COMBIVENT RESPIMAT IN (21:23)
[2018-06-02 21:48] LABS: INTERNATIONAL NORMALIZED RATIO 1.1 RATIO (0.7-1.3); PROTHROMBIN TIME 11.7 SECONDS (9.0-12.5)
[2018-06-02] MEDS ORDERED: MAGNESIUM250 M1 PO (22:05)
[2018-06-02 22:55] VITALS: BP 159/82
== END 2018-06-02 23:00 | disposition home or self-care (01) ==
LOC: ED 17:48
PROVIDERS: Emergency Medicine
DX: E83.42 Hypomagnesemia (principal); J44.9 Chronic obstructive pulmonary disease, unspecified; I11.0 Hypertensive heart disease with heart failure; I50.9 Heart failure, unspecified; E11.9 Type 2 diabetes mellitus without complications
CPT/HCPCS: J3475

== ENCOUNTER → 2018-07-15 | Outpatient (REF) | payer MEDICARE, MEDICAID ==
[~2018-07-15] MED LIST changes: +APAP/HYDRO325 MG/10 PO; +CHANTIX CONTINUI1 MG PO; +COMBIVENT RESPIMAT IN; +ELIQUIS5 MG PO; +K-DUR/KLOR-CON20 MEQ PO
[2018-07-15 17:34] LABS: HEMATOCRIT 33.5 % (37.0-47.0); IMMATURE GRANULOCYTES 0.4 % (0.0-5.0); MEAN CELL VOLUME 93.8 fL CALC (80.0-100.0); MEAN CORPUSCULAR HGB 30.8 pG CALC (26.0-32.0); MEAN CORPUSCULAR HGB CONC 32.8 g/L CALC (32.0-36.0); NEUT# 3.68 thou/uL (2.00-7.15); RED BLOOD COUNT 3.57 mill/uL (4.20-5.60); RED CELL DISTRI WIDTH 13.6 % (11.5-15.5)
[2018-07-15 18:05] LABS: ALBUMIN 4.2 g/dL (3.2-5.0); BILIRUBIN, TOTAL 0.8 mg/dL (0.0-1.4); CREATININE 1.2 mg/dL (0.5-1.0); POTASSIUM 4.1 mmol/l (3.5-5.1); TOTAL PROTEIN 7.3 g/dL (6.3-8.2)
[2018-07-15 18:34] LABS: TSH, 3RD GENERATION 0.42 uIU/mL (0.47 - 4.68)
== END | disposition home or self-care (01) ==
LOC: LAB 16:35
PROVIDERS: ATTEND Family Medicine
DX: D63.1 Anemia in chronic kidney disease (principal); E11.22 Type 2 diabetes mellitus with diabetic chronic kidney disease; I12.9 Hypertensive chronic kidney disease with stage 1 through stage 4 chronic kidney disease, or unspecified chronic kidney disease; E87.3 Alkalosis

== ENCOUNTER 2018-08-21 16:34 | Observation (INO) | payer MEDICARE, MEDICAID ==
[~2018-08-21] VITALS: Ht 162.6 cm; Wt 77.0 kg
--- NOTE | 2018-08-21 16:41 | NUR ---
PT TO ROOM VIA WC
[2018-08-21 17:15] LABS: HEMATOCRIT 35.2 % (37.0-47.0); HEMOGLOBIN 11.7 g/dl (12.0-16.0); IMMATURE GRANULOCYTES 0.6 % (0.0-5.0); MEAN CELL VOLUME 92.6 fL CALC (80.0-100.0); MEAN CORPUSCULAR HGB 30.8 pG CALC (26.0-32.0); MEAN CORPUSCULAR HGB CONC 33.2 g/L CALC (32.0-36.0); NEUT# 3.79 thou/uL (2.00-7.15); RED BLOOD COUNT 3.8 mill/uL (4.20-5.60); RED CELL DISTRI WIDTH 14.9 % (11.5-15.5)
[2018-08-21 17:29] LABS: ALBUMIN 4.5 g/dL (3.2-5.0); BILIRUBIN, TOTAL 0.9 mg/dL (0.0-1.4); CREATININE 1.8 mg/dL (0.5-1.0); TOTAL PROTEIN 7.5 g/dL (6.3-8.2)
--- NOTE | 2018-08-21 18:07 | NUR ---
PT AMBULATORY TO BR FOR URINE SPECIMEN, SLOW AND STEADY GAIT.
[2018-08-21 18:23] LABS: URINE BILIRUBIN - DIPSTICK NEGATIVE (NEGATIVE); URINE BLOOD DIPSTICK TRACE-LYSED (NEGATIVE); URINE COLOR YELLOW; URINE GLUCOSE - DIPSTICK NEGATIVE (NEGATIVE); URINE KETONE NEGATIVE (NEGATIVE); URINE LEUK ESTERASE TRACE (NEGATIVE); URINE NITRITE - DIPSTICK NEGATIVE (Negative); URINE PH 6.5 (4.5-8.0); URINE PROTEIN - DIPSTICK TRACE mg/dL (NEG-TRACE); URINE UROBILINOGEN - DIPSTICK 0.2 E.U./dL (0.2)
[2018-08-21] MEDS ORDERED: DONEPEZIL5 MG PO (19:58)
[2018-08-21] MEDS ORDERED: LISINOPRIL2.5 MG PO (19:59)
[2018-08-21 20:00] VITALS: BP 124/72
[2018-08-21] MEDS ORDERED: LASIX 40 MG40 MG/TAB PO (20:00)
--- NOTE | 2018-08-21 20:00 | NUR ---
PT ARRIVED TO THE FLOOR VIA WC, NO S/O DISTRESS AT THIS TIME, APPEARS TO BE STABLE. PT DENIES ANY PAIN/N/V AT THIS TIME. AIDE IS IN W/PT OBTAINING WEIGHT, V/S AND ORIENTING PT TO ROOM, CALL SYSTEM, LIGHTS, BED AND TV. STATE WILDLIFE OFFICER WILL FOLLOW-UP FOR FULL ASSESSMENT.
--- NOTE | 2018-08-21 20:44 | NUR ---
REPORT PROVIDED TO NAVIN, TO ROOM SOON.
--- NOTE | 2018-08-21 20:57 | NUR ---
PT TO ROOM 289 WITHOUT INCIDENT.
--- NOTE | 2018-08-21 22:27 | NUR ---
PT ASSESSED AND IV FLUIDS REPLENISHED AT THIS TIME. NO S/O DISTRESS NOTED. PT REQUESTING ICE/PROVIDED AND ASKING FOR PAIN MEDICATION SHE TAKES AT HOME AND OTHER NIGHTLY MEDICATIONS/PHYSICIAN CONTACTED/ORDERS RECEIVED. LUNG SOUNDS ARE DIM, ABD SOFT NON-TENDER W/ACITVE BOWEL SOUNDS, PT DENIES VOMITING SINCE SATURDAY OF THIS WEEK, BUT STATES THAT SHE IS STILL HAVING DIARRHEA/NONE OBSERVED YET AT THIS TIME. WILL CONTINUE TO MONITOR. PT ENCOURAGED TO CALL IF ANY NEEDS ARISE OR IF SHE NEEDS TO AMBULATE TO RESTROOM. CALL LIGHT AT BEDSIDE.
--- NOTE | 2018-08-21 23:42 | NUR ---
PT MEDICATED ORDERS PROVIDE AND FOR PAIN REPORTED 12/06. NO S/O DISTRESS NOTED AT THIS TIME. CALL LIGHT IN HAND AND PT WATCHING TV
[2018-08-22 00:14] VITALS: BP 106/63
[2018-08-22 04:06] VITALS: BP 112/71
--- NOTE | 2018-08-22 04:32 | NUR ---
PT IS SLEEPING SOUNDLY AT THIS TIME, NO S/O DISTRESS NOTED. CALL LIGHT AT BEDSIDE.
--- NOTE | 2018-08-22 08:00 | NUR ---
PT RESTING IN BED, RESPIRATION EVEN/UNLABORED. OFFERS NO COMPLAINTS AT THIS TIME. CALL LIGHT IN REACH, WILL MONITOR.
--- NOTE | 2018-08-22 09:20 | NUR ---
MEDICATED FOR PAIN ORDERED,FOR BACK PAIN PER PT REQUEST. CALL LIGHT IN REACH, WILL MONITOR.
--- NOTE | 2018-08-22 11:30 | NUR ---
DIETARY ON UNIT, LUNCH TRAY SET UP
--- NOTE | 2018-08-22 12:30 | NUR ---
DR. SELLERS AT BEDSIDE , NEW ORDERS RECIEVED.
--- NOTE | 2018-08-22 14:00 | NUR ---
PT MEDICATED FOR BACK PAIN ORDERED, PER PT REQUEST. PT ALSO REQUESTED COKE, REQUEST GRANTED. PT REPOSITIONED, CALL LIGHT IN REACH. WILL MONITOR.
[2018-08-22 15:30] VITALS: BP 113/73
--- NOTE | 2018-08-22 18:40 | NUR ---
PT MEDICATED FOR BACK PAIN ORDERED PER PT REQUEST. DINNER TRAY SET UP. CALL LIGHT IN REACH. WILL MONITOR.
[2018-08-22 19:12] VITALS: BP 142/81
--- NOTE | 2018-08-22 21:53 | NUR ---
PT MEDICATED ORDERS PROVIDE AND FOR PAIN 5/10 ON PAIN SCALE IN BACK AND FEET. PT IS LOCX4, TALKATIVE AND WATCHING TV.
[2018-08-23 00:05] VITALS: BP 124/72
--- NOTE | 2018-08-23 01:13 | NUR ---
PT CALLED TO REPORT BM. MODERATE WATERY LIGHT BROWN STOOL/SAMPLE COLLECTED AND SENT TO LAB. PT DENIES ANY OTHER NEEDS AT THIS TIME.
[2018-08-23 02:11] LABS: C. DIFFICILE TOXIN A&B NEGATIVE (NEGATIVE)
[2018-08-23 04:00] VITALS: BP 109/63
[2018-08-23 06:02] LABS: HEMATOCRIT 30.8 % (37.0-47.0); HEMOGLOBIN 10.2 g/dl (12.0-16.0); IMMATURE GRANULOCYTES 0.6 % (0.0-5.0); MEAN CELL VOLUME 94.2 fL CALC (80.0-100.0); MEAN CORPUSCULAR HGB 31.2 pG CALC (26.0-32.0); MEAN CORPUSCULAR HGB CONC 33.1 g/L CALC (32.0-36.0); NEUT# 2.21 thou/uL (2.00-7.15); RED BLOOD COUNT 3.27 mill/uL (4.20-5.60); RED CELL DISTRI WIDTH 14.7 % (11.5-15.5)
[2018-08-23 06:29] LABS: BILIRUBIN, TOTAL 0.5 mg/dL (0.0-1.4); CREATININE 1.2 mg/dL (0.5-1.0); MAGNESIUM 1.3 mg/dL (1.6-2.3); TOTAL PROTEIN 6.2 g/dL (6.3-8.2)
[2018-08-23 06:39] LABS: ALBUMIN 3.5 g/dL (3.2-5.0)
[2018-08-23 07:53] VITALS: BP 133/80
--- NOTE | 2018-08-23 07:55 | NUR ---
REPORT WAS RECEIVED FROM NAVIN. ASSESSMENT DONE. PT IS A&O X3. MEDICATED PT WITH LORTAB FOR PAIN IN BACK 10/06 SEE EMAR. IVF INFUING WELL. PT DENIES ANY OTHER NEEDS AT THIS TIME. TELE IN PLACE. SAFETY PRECAUTIONS REINFORCED AND CALL LIGHT IN REACH.
[2018-08-23 11:33] VITALS: BP 107/66
--- NOTE | 2018-08-23 12:15 | NUR ---
MANUAL ARTS THERAPIST SETUP PT FOR LUNCH. PT STATED NOT VERY HUNGRY AT THIS TIME. PT DENIES ANY NEEDS AT THIS TIME. CALL LIGHT IN REACH.
--- NOTE | 2018-08-23 15:50 | NUR ---
PT IS RESTING IN BED AND TALKATIVE. NO S/S OF DISTRESS NOTED. CALL LIGHT IN REACH.
[2018-08-23 16:00] VITALS: BP 109/66
[2018-08-23 19:05] VITALS: BP 114/70
--- NOTE | 2018-08-23 19:05 | NUR ---
BEDSIDE REPORT RECEIVED FROM DAY NURSE. POC DISCUSSED W/PT. PT C/O SORENESS TO RIGHT EYE/SMALL AMOUNT OF REDNESS VISUALIZED TO EDGE OF BOTTOM LID. WARM COMPRESS OFFERED/REFUSED AT THIS TIME. REPORTS LAST LOOSE STOOL 1.5HRS AGO. DENIES ANY OTHER NEEDS OR CONCERNS AT THIS TIME. PT IS AMBULATORY AROUND ROOM AND INTO HALLWAY.
--- NOTE | 2018-08-23 19:42 | NUR ---
WATERWORKS OPERATOR IS JUST LEAVING ROOM, V/S ASSESSED. PT ASSESSMENT COMPLETED AT THIS TIME. LUNG SOUNDS ARE CLEAR, ABD SOFT TENDER TO LEFT FLANK, ACTIVE BOWEL SOUNDS. NO NOTED EDEMA, SKIN INTACT, NEURO'S INTACT. POC DISCUSSED AND PT ASKED NOT TO FLUSH IF SHE HAS ANOTHER BM SO THAT STOOL CAN BE VISUALIZED/PT VERBALIZED UNDERSTANDING. PT PROVIDED WARM MOIST COMPRESS FOR RIGHT EYE. DENIES ANY OTHER NEEDS AT THIS TIME. CALL LIGHT IN HAND, TV AND LIGHTS ARE ON.
--- NOTE | 2018-08-23 20:55 | NUR ---
PT MEDICATED ORDERS PROVIDE. SNACK PROVIDED/REQUEST. PT DENIES ANY OTHER NEEDS AT THIS TIME, BUT ENCOURAGED TO CALL FOR ASSISTANCE NEEDED.
[2018-08-24 00:23] VITALS: BP 115/72
--- NOTE | 2018-08-24 00:25 | NUR ---
PT CALLED ASKING FOR A SNACK, PROVIDED. IV FLUIDS REPLENISHED AT THIS TIME. PT DENIES ANY OTHER NEEDS AT THIS TIME. PT DENIES ANY LOOSE STOOLS THIS EVENING, BUT IS ASKING ABOUT MEDICATION SCHEDULE FOR DIAHRREA. POC DISCUSSED AND MEDICATIONS. PT REPORTS PASSING LOTS OF FLATUS.
[2018-08-24 04:00] VITALS: BP 116/69
--- NOTE | 2018-08-24 04:08 | NUR ---
PT APPEARS TO BE SLEEPING, NO S/O DISTRESS NOTED, CALL LIGHT AT SIDE.
[2018-08-24 05:07] LABS: HEMATOCRIT 29.4 % (37.0-47.0); HEMOGLOBIN 9.6 g/dl (12.0-16.0); IMMATURE GRANULOCYTES 0.7 % (0.0-5.0); MEAN CELL VOLUME 95.5 fL CALC (80.0-100.0); MEAN CORPUSCULAR HGB 31.2 pG CALC (26.0-32.0); MEAN CORPUSCULAR HGB CONC 32.7 g/L CALC (32.0-36.0); NEUT# 2.25 thou/uL (2.00-7.15); RED BLOOD COUNT 3.08 mill/uL (4.20-5.60); RED CELL DISTRI WIDTH 14.9 % (11.5-15.5)
--- NOTE | 2018-08-24 05:14 | NUR ---
PT IN BED W/LIGHTS OUT, CALLED OUT TO HALLWAY TO TALK AND VISIT. IV FLUIDS RUNNING ORDERED/SITE APPEARS HEALTHY AT THIS TIME.
[2018-08-24 05:21] LABS: ANION GAP 13 (6-22 (CALC)); BUN 17 mg/dL (8-23); BUN/CREATININE RATIO 20 (12-20 (CALC)); CARBON DIOXIDE 21 mmol/l (22-30); CHLORIDE 110 mmol/l (95-108); CREATININE 0.8 mg/dL (0.5-1.0); GFR > 60 ML/MIN (>=60 (CALC)); GFR FOR AFR.AMER. > 60 ML/MIN (>=60 (CALC)); MAGNESIUM 1.1 mg/dL (1.6-2.3); POTASSIUM 3.5 mmol/l (3.5-5.1); SODIUM 141 mmol/l (137-146)
[2018-08-24 08:08] VITALS: BP 111/61
--- NOTE | 2018-08-24 08:14 | NUR ---
ASSESSMENT DONE. PT IS A&O X3. IVF INFUSING WELL. TELE IN PLACE. MEDICATED PT WITH LORTAB FOR PAIN IN BACK 10/06 SEE EMAR. PT DENIES ANY OTHER NEEDS AT THIS TIME. CALL LIGHT IN REACH.
--- NOTE | 2018-08-24 10:58 | NUR ---
NOTIFIED SKY GARZON RE: PT HAVING BURING IN EYES AFTER EYE DROP. I TOLD PT THE SIDE EFFECTS. NO NEW ORDERS AT THIS TIME.
[2018-08-24 11:30] VITALS: BP 117/66
[2018-08-24] MEDS ORDERED: PANTOPRAZOLE SO40 M1 PO (12:29)
[2018-08-24] MEDS ORDERED: IMODIUM2 MG PO (12:29)
--- NOTE | 2018-08-24 12:40 | NUR ---
PT RESTING IN BED. PT STATED EYES ARE NOT BURNING ANY MORE. TOLD PT LUNCH IS HERE. PT WENT BACK TO SLEEP. CALL LIGHT IN REACH.
[2018-08-24 16:00] VITALS: BP 102/57
--- NOTE | 2018-08-24 16:09 | NUR ---
MAINTENANCE SHOP CLERK SET PT FOR A SHOWER. PT STATED SHE IS WAITING FOR HER RIDE SO SHE CAN GO HOME. PT DENIES ANY OTHER NEEDS AT THIS TIME. CALL LIGHT IN REACH.
--- NOTE | 2018-08-24 18:38 | NUR ---
Discharge instructions given. Patient verbalizes understanding of same. Discharged in stable condition via Wheelchair to Home with staff. All belongings sent with pt.
== END 2018-08-24 18:40 | disposition home or self-care (01) ==
LOC: ED 16:34 → ED-I 19:00 → ED 19:14 → MS2 19:15
PROVIDERS: Family Medicine; Internal Medicine Nephrology; Nurse Practitioner Family; ADMIT Internal Medicine; ATTEND Internal Medicine
DX: K52.9 Noninfective gastroenteritis and colitis, unspecified (principal); J18.9 Pneumonia, unspecified organism; J44.0 Chronic obstructive pulmonary disease with (acute) lower respiratory infection; N17.9 Acute kidney failure, unspecified; E86.0 Dehydration; I13.0 Hypertensive heart and chronic kidney disease with heart failure and stage 1 through stage 4 chronic kidney disease, or unspecified chronic kidney disease; N18.3 Chronic kidney disease, stage 3 (moderate); I50.9 Heart failure, unspecified; E83.42 Hypomagnesemia; I25.10 Atherosclerotic heart disease of native coronary artery without angina pectoris; J96.10 Chronic respiratory failure, unspecified whether with hypoxia or hypercapnia; I48.2 Chronic atrial fibrillation; H00.012 Hordeolum externum right lower eyelid; F32.9 Major depressive disorder, single episode, unspecified; G31.84 Mild cognitive impairment of uncertain or unknown etiology; E78.5 Hyperlipidemia, unspecified; K21.9 Gastro-esophageal reflux disease without esophagitis; M19.90 Unspecified osteoarthritis, unspecified site; G47.33 Obstructive sleep apnea (adult) (pediatric); F17.200 Nicotine dependence, unspecified, uncomplicated; Z99.81 Dependence on supplemental oxygen; Z95.5 Presence of coronary angioplasty implant and graft; Z79.01 Long term (current) use of anticoagulants; Z95.810 Presence of automatic (implantable) cardiac defibrillator
CPT/HCPCS: J3475

== ENCOUNTER 2018-10-22 23:40 | Emergency (ER) | payer MEDICARE, MEDICAID ==
[~2018-10-22] VITALS: Ht 162.6 cm; Wt 75.0 kg
[~2018-10-22 23:40] MED LIST changes: +DONEPEZIL5 MG PO; +LASIX 40 MG40 MG/TAB PO; +PANTOPRAZOLE SO40 M1 PO
[2018-10-23 01:07] LABS: HEMATOCRIT 30.5 % (37.0-47.0); HEMOGLOBIN 10.1 g/dl (12.0-16.0); IMMATURE GRANULOCYTES 0.5 % (0.0-5.0); MEAN CORPUSCULAR HGB 29.7 pG CALC (26.0-32.0); MEAN CORPUSCULAR HGB CONC 33.1 g/L CALC (32.0-36.0); NEUT# 3.46 thou/uL (2.00-7.15); RED BLOOD COUNT 3.4 mill/uL (4.20-5.60)
[2018-10-23 01:08] LABS: MEAN CELL VOLUME 89.7 fL CALC (80.0-100.0)
[2018-10-23 01:20] LABS: URINE BILIRUBIN - DIPSTICK NEGATIVE (NEGATIVE); URINE BLOOD DIPSTICK TRACE-INTACT (NEGATIVE); URINE COLOR YELLOW; URINE GLUCOSE - DIPSTICK NEGATIVE (NEGATIVE); URINE KETONE NEGATIVE (NEGATIVE); URINE LEUK ESTERASE NEGATIVE (NEGATIVE); URINE NITRITE - DIPSTICK NEGATIVE (Negative); URINE PROTEIN - DIPSTICK NEGATIVE (NEG-TRACE); URINE UROBILINOGEN - DIPSTICK 0.2 E.U./dL (0.2)
[2018-10-23 01:23] LABS: BARBITURATES NEGATIVE (NEGATIVE); COCAINE NEGATIVE (NEGATIVE); METHADONE NEGATIVE (NEGATIVE); OXCYCODONE POSITIVE (NEGATIVE); TETRAHYDROCANNABIONOL NEGATIVE (NEGATIVE); TRICYLIC ANTIDEPRESSANTS NEGATIVE (NEGATIVE)
[2018-10-23 01:30] LABS: ALBUMIN 3.9 g/dL (3.2-5.0); BILIRUBIN, TOTAL 0.5 mg/dL (0.0-1.4); CREATININE 1.3 mg/dL (0.5-1.0); POTASSIUM 3.3 mmol/l (3.5-5.1); TOTAL PROTEIN 6.8 g/dL (6.3-8.2)
[2018-10-23 01:35] VITALS: BP 125/75
[2018-10-23 01:41] LABS: MYOGLOBIN 134 ng/mL (0 - 62)
[2018-10-23 01:54] LABS: INTERNATIONAL NORMALIZED RATIO 1.1 RATIO (0.7-1.3); PROTHROMBIN TIME 11.5 SECONDS (9.0-12.5)
== END 2018-10-23 01:35 | disposition short-term general hospital (02) ==
LOC: ED 23:40
PROVIDERS: Emergency Medicine
PROC: 0BH17EZ Insertion of Endotracheal Airway into Trachea, Via Natural or Artificial Opening (ICD-10-PCS; principal; 2018-10-23)
PROC: 0T9B70Z Drainage of Bladder with Drainage Device, Via Natural or Artificial Opening (ICD-10-PCS; 2018-10-23)
DX: S06.5X0A Traumatic subdural hemorrhage without loss of consciousness, initial encounter (principal); J96.00 Acute respiratory failure, unspecified whether with hypoxia or hypercapnia; F10.129 Alcohol abuse with intoxication, unspecified; J44.9 Chronic obstructive pulmonary disease, unspecified; I11.0 Hypertensive heart disease with heart failure; I50.9 Heart failure, unspecified; E11.9 Type 2 diabetes mellitus without complications; W01.0XXA Fall on same level from slipping, tripping and stumbling without subsequent striking against object, initial encounter; Y92.009 Unspecified place in unspecified non-institutional (private) residence as the place of occurrence of the external cause; Z95.828 Presence of other vascular implants and grafts